=== PATIENT | male | born 1965 | race Two or more races ===

== ENCOUNTER 2018-11-26 13:20 | Outpatient (CLI) | payer MEDICARE, MEDICAID ==
--- NOTE | 2018-11-26 13:39 | RAD ---
THORACOLUMBAR SPINE 2 VIEW SERIES: CLINICAL HISTORY: Scoliosis. COMPARISON: No prior comparison. FINDINGS: The patient is rotated/angulated, which does limit evaluation of spinal alignment. However, there is a prominent degree of levoscoliosis of the lumbar spine, apex at L2-3 level, 54 degrees. IMPRESSION: Significant levoscoliosis of the lumbar spine. Evaluation is limited, however, due to patient angulat ion/rotation. Transcribed Date/Time: 11/26/2018 2:01 PM
== END 2018-11-26 13:21 | disposition home or self-care (01) ==
LOC: MADRAD 13:20
PROVIDERS: ATTEND General Practice
DX: M41.25 Other idiopathic scoliosis, thoracolumbar region (principal)
CPT/HCPCS: 72081